=== PATIENT | female | born 1960 | race Caucasian/White ===

== ENCOUNTER → 2023-05-02 09:42 | Outpatient (REF) | payer OTHER, SELFPAY ==
--- NOTE | 2023-05-02 09:48 | CA_ITS ---
Transthoracic Echocardiogram Patient (Last, First, Middle): Ina Luis, Gender: Female Date of : 1960 Age: 63 Procedure Date: 05/02/2023 Procedure Type: Transthoracic Echocardiogram Location: OP Height: 160.02 cm Weight: 61.24 kg BSA: 1.64 m2 Heart Rate: bpm BP: 118 / 72 mmHg Editor Continuity And Script: TO Referring MD: Sheri Rice NP Symptoms: I48.0 PAF Study Quality: Adequate ECG Rhythm: Sinus Conclusions: - The left ventricular systolic function is normal. The calculated ejection fraction is 62% by biplane method. - No obvious valvular pathology seen on this study. Findings Left Ventricle Normal left ventricular cavity size. There is normal left ventricular wall thickness. The left ventricular systolic function is normal. The calculated ejection fraction is 62% by biplane method. There is no evidence of regional wall motion abnormalities. Diastolic function is normal for age. LV peak GLS -20.1%. Right Ventricle Normal right ventricular cavity size and systolic function. Atria The left atrium is mildly dilated. The right atrium is normal in size. Aortic Valve There is a normal trileaflet aortic valve. There is no aortic valve stenosis. There is no aortic valve regurgitation. Mitral Valve The mitral valve appears normal. There is trace mitral valve regurgitation. There is no mitral valve stenosis. Pulmonic Valve There is trace pulmonic valve regurgitation. Tricuspid Valve Normal tricuspid valve structure. There is mild tricuspid valve regurgitation. There is no evidence of pulmonary hypertension. Great Vessels The asc aorta is normal in size. Venous The inferior vena cava is normal in size and collapses greater than 50% with inspiration. Pericardium/Pleural There is no evidence of pericardial effusion. Prior Study Comparison No prior study available for comparison. Recommendations, Care & Conclusions No obvious valvular pathology seen on this study. Measurements 2D Linear Measurements IVSd: 0.90 0.6-0.9/0.6-1.0 cm LVIDd: 4.64 3.9-5.3/4.2-5.9 cm LVIDd Index: 2.83 2.4-3.2/2.2-3.1 cm/m2 LVIDs: 2.60 2.0-3.6 cm LVPWd: 0.79 0.7-1.1 cm LA Diam: 3.60 2.7-3.8/3.0-4.0 cm LAIDs Index: 2.20 1.5-2.3 cm/m2 LV Mass: 160.01 67-162/88-224 g LV Mass Index: 97.57 43-95/49-115 g/m2 LVOT Diam: 1.90 3.0+(-)1.3 cm 2D Systolic Function EF 4C: 63.60 >55% EF 2C: 59.00 >55% EF BiP: 61.60 >55% Mitral Valve MV Pk E: 0.65 MV PK A: 0.30 MV Decel Time: 211.00 E/A: 2.10 E'Lateral: 8.27 E'Medial: 7.40 E/E' Med: 8.80 E/E' Lat: 7.90 PHT: 62.00 MVA PHT: 3.55 Decel [place]: 3.08 Aortic Valve AoV Pk Lopez: 1.29 AoV Mn Lopez: 0.94 AoV VTI: 0.30 AoV Pk Grad: 7.00 Aov Mn Grad: 4.00 MINDI Cont.VTI: 2.74 LVOT LVOT Pk Lopez: 1.23 LVOT Mn Lopez: 0.80 LVOT VTI: 0.29 LVOT Pk Grad: 6.00 LVOT Mn Grad: 3.00 LVOT Diam: 1.90 LVOT Area: 2.84 Diastolic Function MV Pk E: 0.65 MV Pk A: 0.30 E/A: 2.10 E'Medial: 7.40 E/E' Med: 8.80 E' Laterial: 8.27 E/E' Lat: 7.90 Right Ventricle TAPSE (mm): 18.10 TVS' Lopez: 10.60 Tricuspid Valve TR Pk Lopez: 2.17 TR Pk Grad: 19.00 RA Press: 3.00 RVSP: 22.00 Great Vessels Aorta Sinus of Valsalva: 2.83 2.0-3.5 cm Ao Asc: 3.30 2.1-3.4 cm Updated in Other Vendor System with Status of Final Scott Smith MD electronically signed on 05/04/2023 8:06:36 AM with status of Final
== END ==
LOC: HO.CARD 09:42
PROVIDERS: PCP Internal Medicine; Visit Provider Nurse Practitioner
DX: I48.0 Paroxysmal atrial fibrillation (principal)
CPT/HCPCS: 93306; 93356

== ENCOUNTER → 2023-05-02 09:48 | Outpatient (BNV) | payer OTHER, SELFPAY | PROVIDERS: PCP Internal Medicine; Visit Provider Internal Medicine | DX: I36.1 Nonrheumatic tricuspid (valve) insufficiency (principal); I48.0 Paroxysmal atrial fibrillation | CPT/HCPCS: 93306 ==